=== PATIENT | female | born 1995 | race Caucasian/White ===

== ENCOUNTER 2016-11-06 22:11 | Emergency (ER) | payer SELFPAY ==
[~2016-11-06] VITALS: Ht 160 cm; Wt 60.0 kg
[2016-11-06 22:16] VITALS: BP 134/74
== END 2016-11-06 23:16 | disposition left against medical advice (07) ==
LOC: EME 22:11
DX: S81.812A Laceration without foreign body, left lower leg, initial encounter (principal); Z53.21 Procedure and treatment not carried out due to patient leaving prior to being seen by health care provider